=== PATIENT | female | born 1980 | race Caucasian/White ===

== ENCOUNTER 2020-02-03 15:20 | Emergency (ER) | payer MEDICAID, OTHER ==
[~2020-02-03] VITALS: Ht 170.2 cm; Wt 141.1 kg
[2020-02-03 15:30] VITALS: BP 147/84
== END 2020-02-03 16:22 | disposition home or self-care (01) ==
LOC: ER 15:20
DX: L73.2 Hidradenitis suppurativa (principal); J45.909 Unspecified asthma, uncomplicated; I10 Essential (primary) hypertension